=== PATIENT | female | born 1950 | race Caucasian/White ===

== ENCOUNTER → 2023-08-06 | Outpatient (CLI) | payer MEDICARE ==
[~2023-08-06] MED LIST: BUDE10.2 IH; FEXO60TA24 PO; HYDR-3416 PO; LOSA25TA12 PO; METO50TA6 PO; ROSU10TA2 PO; TIOT18CA IH; TRAM50TA PO
== END | disposition home or self-care (01) ==
LOC: RAD 09:37
PROVIDERS: ATTEND Specialist
DX: J44.9 Chronic obstructive pulmonary disease, unspecified (principal)
CPT/HCPCS: 71046

== ENCOUNTER → 2024-01-26 | Outpatient (CLI) | payer MEDICARE | END | disposition home or self-care (01) | LOC: RAD 13:21 | PROVIDERS: ATTEND Specialist | DX: I34.81 Nonrheumatic mitral (valve) annulus calcification (principal); I10 Essential (primary) hypertension; J44.9 Chronic obstructive pulmonary disease, unspecified | CPT/HCPCS: 93306 ==

== ENCOUNTER 2025-01-04 18:16 | Observation (INO) | payer MEDICARE ==
[~2025-01-04] VITALS: Ht 172.7 cm; Wt 54.0 kg
[2025-01-04 18:19] VITALS: BP 143/99; PULSE 86; RESP 24; TEMP 97.8; O2SAT 92
[2025-01-04] MEDS: DUONEB 0.5-3(2.5) MG/3 ML IH STA (18:41)
[2025-01-04 18:42] VITALS: PULSE 87; O2SAT 93
[2025-01-04 18:46] VITALS: BP 120/67; PULSE 93; PULSE 95; RESP 20; TEMP 97.8; O2SAT 92; O2SAT 99
[2025-01-04 18:48] LABS: BASOPHIL # 0.1 10^3/uL (0.0-0.1); BASOPHIL % 0.4 % (0.1-1.2); EOSINOPHIL # 0.1 10^3/uL (0.0-0.2); EOSINOPHIL % 0.8 % (0.0-5.0); HEMATOCRIT(ML) 41.8 % (36.0-46.0); IG % 0.30 % (0.00-0.50); LYMPHOCYTES # 4.38 10^3/uL1 (1.0-4.8); LYMPHOCYTES % 25.9 % (24.0-44.0); MEAN CORP HGB 29.3 pg (26-34); MEAN CORP HGB CONCENTRATION 31.6 g/dL (33-36.5); MEAN CORP VOLUME 92.9 fL (78-100); MONOCYTES # 1.0 10^3/uL (0.3-0.8); MONOCYTES % 5.6 % (5.0-12.0); NEUTROPHIL # 11.3 10^3/uL (1.8-7.7); NEUTROPHILS % 67.0 % (41.0-85.0); RED BLOOD CELL 4.50 10^6/uL (4.00-5.20); RED CELL DISTRIBUTION WIDTH 12.8 % (11.5-14.5); WHITE BLOOD CELL 16.9 10^3/uL (4.5-11.0)
[2025-01-04] MEDS: SOLU-MEDROL IV STA (19:08)
[2025-01-04] MEDS: D5W-1/2NS 1000ML 1,000 ML IV ONE (19:09)
[2025-01-04 19:12] LABS: ALANINE AMINOTRANSFERASE(ML) 22.0 U/L (12-78); ALBUMIN(ML) 3.8 g/dL (3.4-5.0); CREATININE SERUM 0.71 mg/dL (0.59-1.40); EST GFR, NON-AA 80.9 (>/=60); TROPONIN I HIGH SENSITIVITY 6.0 ng/L (0-50)
[2025-01-04 19:34] VITALS: BP 122/83; PULSE 94; RESP 20; TEMP 97.8; O2SAT 92
[2025-01-04] MEDS: URE-NA PO STA ×2 (19:40→21:37)
[2025-01-04] MEDS: LEVAQUIN 100 ML IV STA (19:52)
[2025-01-04 20:45] VITALS: BP 151/91; PULSE 101; RESP 18; TEMP 98.2; O2SAT 98
[2025-01-04 21:16] LABS: LEUKOCYTE ESTERASE ,URINE NEGATIVE (NEGATIVE); NITRATE,URINE POSITIVE (NEGATIVE)
[2025-01-04 21:21] LABS: APPEARANCE,URINE TURBID; UA COLOR YELLOW
[2025-01-04 21:54] VITALS: RESP 20; O2SAT 92
[2025-01-04] MEDS: NORCO 7.5 PO PRN (21:58)
[2025-01-04] MEDS ORDERED: VENTOLIN INH PRN (22:00)
[2025-01-04] MEDS: PULMICORT IH SCH (22:00)
[2025-01-04] MEDS ORDERED: LOPRESSOR PO SCH (22:00)
[2025-01-05] VITALS (13 sets, daily range): BP systolic 109–136; BP diastolic 55–80; PULSE 84–110; RESP 19–21; TEMP 97.2–97.7; O2SAT 86–99
[2025-01-05] MEDS: DUONEB 0.5-3(2.5) MG/3 ML IH SCH (02:37)
[2025-01-05 05:39] LABS: BASOPHIL # 0.0 10^3/uL (0.0-0.1); BASOPHIL % 0.1 % (0.1-1.2); EOSINOPHIL # 0.0 10^3/uL (0.0-0.2); EOSINOPHIL % 0.0 % (0.0-5.0); HEMATOCRIT(ML) 37.4 % (36.0-46.0); IG % 0.60 % (0.00-0.50); LYMPHOCYTES # 1.37 10^3/uL1 (1.0-4.8); LYMPHOCYTES % 11.0 % (24.0-44.0); MEAN CORP HGB 28.9 pg (26-34); MEAN CORP HGB CONCENTRATION 32.1 g/dL (33-36.5); MEAN CORP VOLUME 90.1 fL (78-100); MONOCYTES # 0.1 10^3/uL (0.3-0.8); MONOCYTES % 0.6 % (5.0-12.0); NEUTROPHIL # 10.9 10^3/uL (1.8-7.7); NEUTROPHILS % 87.7 % (41.0-85.0); RED BLOOD CELL 4.15 10^6/uL (4.00-5.20); RED CELL DISTRIBUTION WIDTH 12.7 % (11.5-14.5); WHITE BLOOD CELL 12.4 10^3/uL (4.5-11.0)
[2025-01-05 05:47] LABS: CREATININE SERUM 0.65 mg/dL (0.59-1.40); EST GFR, NON-AA 89.6 (>/=60)
[2025-01-05] MEDS: CLARITIN PO SCH (10:20)
[2025-01-05] MEDS: COZAAR PO SCH (10:21)
[2025-01-05] MEDS: ZITHROMAX PO SCH (10:21)
[2025-01-05] MEDS: CRESTOR PO SCH (10:21)
[2025-01-05] MEDS: LOPRESSOR PO SCH (10:21)
[2025-01-05] MEDS ORDERED: PRED10TA PO (18:22)
[2025-01-05] MEDS ORDERED: AZIT250T14 PO (18:22)
== END 2025-01-05 19:30 | disposition home or self-care (01) ==
LOC: ER 18:16 → OBS 19:44
PROVIDERS: ADMIT Internal Medicine; ATTEND Internal Medicine
DX: J44.1 Chronic obstructive pulmonary disease with (acute) exacerbation (principal); J96.01 Acute respiratory failure with hypoxia; D72.829 Elevated white blood cell count, unspecified; E87.1 Hypo-osmolality and hyponatremia; R07.81 Pleurodynia; M19.90 Unspecified osteoarthritis, unspecified site; F17.210 Nicotine dependence, cigarettes, uncomplicated; Z88.0 Allergy status to penicillin; Z79.899 Other long term (current) drug therapy
CPT/HCPCS: 99291; 96365; 96375; 96376 ×2; 87086; 71100; 71045; 80053; 85025 ×2; 36415 ×2; 84484; 87040; 81001; 83880; 87186; 93005; 94640; 80048; G0378 ×3; J8499 ×2; J1956; J2919 ×3; J7627; 87070; 87205; J2930; Q0144